=== PATIENT | male | born 1955 | race Caucasian/White ===

== ENCOUNTER 2019-02-24 06:33 | Day surgery (SDC) | payer BC ==
[~2019-02-24 06:33] MED LIST: Lactated Ringers 1,000 ML IV SCH; Sodium Chloride 0.9% 10 ML Syringe FLUSH PRN
[2019-02-24] MEDS ORDERED: Propofol 200 MG/20 ML SDV ONE (08:21)
[2019-02-24] MEDS ORDERED: fentaNYL 100 MCG/2 ML SDV ONE (08:21)
[2019-02-24 09:27] VITALS: BP 101/55; PULSE 58
--- NOTE | 2019-02-24 15:10 | OR ---
DATE OF SURGERY: 02/24/2019. REFERRING PROVIDER: Heidy Byrne MD. PRE-OPERATIVE DIAGNOSES: Screening colonoscopy. The patient's last colonoscopy was in 2013. There is a positive family history of colon cancer in father. The patient also has a history of diverticulosis. POST-OPERATIVE DIAGNOSES: 1. Moderate diffuse diverticulosis. 2. Otherwise normal colon. PROCEDURE: Colonoscopy. SURGEON: Jack Blum M.D. ANESTHESIA: Monitored anesthesia care. BOWEL PREP: Good. César is a 63-year-old male, was brought to the endoscopy suite after discussing risks and benefits of the procedure. Informed consent was obtained for conscious sedation and colonoscopy with or without biopsy and/or polypectomy. We also discussed possibility of missed lesions. Pre-procedure exam was unremarkable. IV, oxygen, and monitors were placed. The patient was placed in the left lateral decubitus position. Sedation was administered and a digital rectal exam was performed which was unremarkable. Colonoscope was passed into the rectum and slowly advanced all the way to the cecum. Cecum was viewed and photographed. The colonoscope was slowly withdrawn and the mucosa was closed observed in a direct circumferential manner. The patient did have moderate diffuse diverticulosis throughout the entire length of the colon, but slightly more prominent on the left side. The ascending colon was unremarkable. The transverse colon was unremarkable. The descending colon was unremarkable. The sigmoid colon was unremarkable. Retroflexion was performed and rectal mucosa was unremarkable. Scope was removed. The patient tolerated the procedure well. The patient was monitored until that baseline status. Discharge instructions were reviewed and the patient was discharged in good condition. COMPLICATIONS: None. TOTAL TIME: 13 minutes. ESTIMATED BLOOD LOSS: None. RECOMMENDATIONS/FOLLOW-UP: Normal colonoscopy. Would recommend repeating colonoscopy again in 5 years given the positive family history of colon cancer in father. I would like to kindly thank Dr. Byrne for this referral. DMB: 02/24/2019 09:02:20 MODL: 02/24/2019 15:05:07 /[id number]
== END 2019-02-24 10:00 | disposition home or self-care (01) ==
LOC: VM.SDS 06:33
PROVIDERS: ATTEND Family Medicine
DX: Z12.11 Encounter for screening for malignant neoplasm of colon (principal); K57.30 Diverticulosis of large intestine without perforation or abscess without bleeding; K21.9 Gastro-esophageal reflux disease without esophagitis; I10 Essential (primary) hypertension; E66.9 Obesity, unspecified; Z80.0 Family history of malignant neoplasm of digestive organs; Z79.899 Other long term (current) drug therapy; Z79.82 Long term (current) use of aspirin; Z68.31 Body mass index [BMI] 31.0-31.9, adult
CPT/HCPCS: J2704; J3010; J7120